=== PATIENT | male | born 1965 | race Caucasian/White ===

== ENCOUNTER → 2017-09-08 | Emergency (ER) | payer OTHER ==
[~2017-09-08] VITALS: Ht 190.5 cm; Wt 79.4 kg
[~2017-09-08] MED LIST: AMBIEN5 MG PO; CIPRO500 MG PO; CLONAZEPAM1 MG PO; LEVSIN/SL0.125 MG PO; MAALOX MAXIMUM355 ML PO; MEDROLPACK PO; NEXIUM 24HR20 M1; NIFEDIPINE10 MG PO; PROTONIX40 MG PO; SYNTHROID50 MCG; VITAMIN D400 UNI2; ZANTAC300 MG PO
== END | disposition home or self-care (01) ==
LOC: ER 15:52
DX: R13.19 Other dysphagia (principal); K22.0 Achalasia of cardia; F41.8 Other specified anxiety disorders

== ENCOUNTER 2017-09-17 08:44 | Outpatient (CLI) | payer OTHER | END 2017-09-17 08:53 | disposition home or self-care (01) | LOC: LAB 08:44 | DX: R13.14 Dysphagia, pharyngoesophageal phase (principal); K21.9 Gastro-esophageal reflux disease without esophagitis; Z12.11 Encounter for screening for malignant neoplasm of colon ==

== ENCOUNTER 2017-09-17 09:59 | Outpatient (CLI) | payer OTHER | END 2017-09-17 10:13 | disposition home or self-care (01) | LOC: SONOGRAMA 09:59 | DX: R74.0 Nonspecific elevation of levels of transaminase and lactic acid dehydrogenase [LDH] (principal) ==

== ENCOUNTER 2017-09-17 10:01 | Outpatient (CLI) | payer OTHER | END 2017-09-17 10:14 | disposition home or self-care (01) | LOC: RX STUDY 10:01 | DX: R13.14 Dysphagia, pharyngoesophageal phase (principal); K21.9 Gastro-esophageal reflux disease without esophagitis; Z12.11 Encounter for screening for malignant neoplasm of colon ==